=== PATIENT | female | born 1950 | race African-American/Black ===

== ENCOUNTER 2018-01-24 10:13 | Outpatient (CLI) | payer MEDICARE ==
--- NOTE | 2018-01-24 11:39 | RAD ---
CERVICAL SPINE THREE VIEWS: HISTORY: Status post neck surgery six weeks ago with tingling in the arms, hands, and feet. Cervical spinal s tenosis. COMPARISON: None. FINDINGS: Three views of the cervical spine show the patient to be status post anterior fusion of C5 and C6 wit h a plate and screws. There has been prior fusion of C4 and C5. A disk spacer is seen in the C5-C6 disk space. No perihardware lucency is seen. No prevertebral soft tissue swelling is present. Ther e are moderate degenerative changes throughout the cervical spine. The vertebral bodies demonstrate normal alignment without subluxation. IMPRESSION: Post surgical changes and degenerative changes of the cervical spine as above. POS: LIZABETH
== END 2018-01-24 10:14 | disposition home or self-care (01) ==
LOC: TBSIIMAG 10:13
PROVIDERS: ATTEND Neurological Surgery
DX: M48.02 Spinal stenosis, cervical region (principal); Z98.1 Arthrodesis status; M47.892 Other spondylosis, cervical region
CPT/HCPCS: 72040